=== PATIENT | male | born 1965 | race Caucasian/White ===

== ENCOUNTER 2020-07-31 20:38 | Inpatient (IN) | payer OTHER ==
[~2020-07-31] VITALS: Ht 177.8 cm; Wt 80.8 kg
[~2020-07-31 20:38] MED LIST: LACTULOSE10 GM/151 PO
[2020-08-01 00:10] LABS: HEMOGLOBIN 12.6 gm/dl (14.0-17.5); RED BLOOD COUNT 3.45 M/UL (4.20-5.50)
[2020-08-01 00:38] LABS: BUN/CREATININE RATIO 35 (0-10)
[2020-08-01] MEDS ORDERED: GLYBURIDE5 MG PO (06:12)
[2020-08-01] MEDS ORDERED: GABAPENTIN400 MG PO (06:13)
[2020-08-01] MEDS ORDERED: RISPERIDONE2 MG PO (06:16)
[2020-08-01 09:02] LABS: BUN/CREATININE RATIO 37 (0-10)
[2020-08-01 18:47] LABS: BODY FLUID SOURCE PERITONEAL; MONONUCLEAR CELLS 78.4 (75-100); POLYMORPHONUCLEAR % 21.6 (0-25); RBC (AUTOMATED) < 100 (0-100000); WBC (AUTOMATED) 51 (0-500)
[2020-08-01 18:48] LABS: TOTAL PROTEIN, BODY FLUID 0.6 gm/dL
[2020-08-02 03:48] LABS: BUN/CREATININE RATIO 47 (0-10)
[2020-08-03 03:33] LABS: HEMOGLOBIN 11.7 gm/dl (14.0-17.5); RED BLOOD COUNT 3.28 M/UL (4.20-5.50); WHITE BLOOD COUNT 8.3 K/UL (4.5-11.0)
[2020-08-03 03:55] LABS: BUN/CREATININE RATIO 54 (0-10)
[2020-08-03] MEDS ORDERED: FINASTERIDE5 MG PO (06:04)
[2020-08-03] MEDS ORDERED: CARVEDILOL3.125 MG PO (06:05)
[2020-08-03] MEDS ORDERED: ESOMEPRAZOLE MA40 MG PO (06:05)
[2020-08-03] MEDS ORDERED: BASAGLAR K100 UNIT/1 SC (06:06)
[2020-08-03] MEDS ORDERED: SPIRONOLACTONE50 MG PO (06:08)
[2020-08-03] MEDS ORDERED: FLOMAX 0.4 MG0.4 MG PO (06:08)
[2020-08-03] MEDS ORDERED: BUSPIRONE HCL15 MG PO (06:09)
[2020-08-03] MEDS ORDERED: VISTARIL 25 MG25 MG PO (06:12)
[2020-08-03] MEDS ORDERED: LASIX TAB 20 MG20 MG PO (06:14)
[2020-08-03] MEDS ORDERED: PROTONIX 40 MG40 M1 PO (06:15)
[2020-08-03] MEDS ORDERED: LEVOTHYROXINE25 MCG PO (06:15)
[2020-08-03] MEDS ORDERED: TYLENOL EXTRA500 MG PO (18:32)
[2020-08-03] MEDS ORDERED: OMEPRAZOLE40 MG PO (18:32)
[2020-08-03] MEDS ORDERED: POTASSIUM CHLO10 MEQ PO (18:34)
[2020-08-04 03:32] LABS: HEMOGLOBIN 11.8 gm/dl (14.0-17.5); RED BLOOD COUNT 3.26 M/UL (4.20-5.50); WHITE BLOOD COUNT 7.5 K/UL (4.5-11.0)
[2020-08-04 03:46] LABS: BUN/CREATININE RATIO 54 (0-10)
[2020-08-05 04:27] LABS: RED BLOOD COUNT 3.29 M/UL (4.20-5.50); WHITE BLOOD COUNT 8.8 K/UL (4.5-11.0)
[2020-08-05 04:52] LABS: BUN/CREATININE RATIO 53 (0-10)
[2020-08-06 07:20] LABS: BUN/CREATININE RATIO 45 (0-10)
[2020-08-06] MEDS ORDERED: FUROSEMIDE40 MG PO (15:33)
[2020-08-06] MEDS ORDERED: CHRONULAC20 GM/30 M PO (15:33)
== END 2020-08-07 16:28 | disposition home health service (06) | DRG 432 ==
LOC: M/S 20:38 → MED SURG 4 22:26 → PROG CARE 22:26 → MED SURG 4 08-04 13:32
PROVIDERS: Internal Medicine; ADMIT Family Medicine
PROC: 0W9G3ZX Drainage of Peritoneal Cavity, Percutaneous Approach, Diagnostic (ICD-10-PCS; principal; 2020-08-01)
DX: K70.31 Alcoholic cirrhosis of liver with ascites (principal); G92 Toxic encephalopathy; K56.7 Ileus, unspecified; K71.10 Toxic liver disease with hepatic necrosis, without coma; Z20.822 Contact with and (suspected) exposure to COVID-19; K21.9 Gastro-esophageal reflux disease without esophagitis; I10 Essential (primary) hypertension; E11.9 Type 2 diabetes mellitus without complications; D64.9 Anemia, unspecified; D69.6 Thrombocytopenia, unspecified; Z72.89 Other problems related to lifestyle; Z79.84 Long term (current) use of oral hypoglycemic drugs
CPT/HCPCS: 36415; 80048; 80053; 81001; 82140; 82550; 82553; 82962; 83735; 83880; 84100; 84157; 84439; 84443; 84484; 85025; 85610; 87070; 87086; 87205; 89051; 97116-GP-CQ; 97162; J2405; J3411; J3475; J7030; J7040; J7050; U0002